=== PATIENT | male | born 1965 | race Caucasian/White ===

== ENCOUNTER 2016-08-26 13:48 | Emergency (ER) | payer BC ==
[2016-08-26 14:05] VITALS: BP 163/82
--- NOTE | 2016-08-26 14:41 | EDM.PDOC ---
ED HPI GI/ABDOMINAL - General Chief Complaint: Abdominal Pain Stated Complaint: STOMACH PAIN Time Seen by Provider: 08/26/16 14:31 Source of Information: Reports: Patient History Limitations: Reports: No limitations - History of Present Illness INITIAL COMMENTS - FREE TEXT/NARRATIVE: Patient presents for evaluation and treatment of abdominal discomfort and diarrhea. Patient reports this is been going on for the last week. He reports that he will have a normal stool in the morning. States any time after eating he develops abdominal discomfort, gas and diarrhea. He denies any bloody stools. Reports the abdominal discomfort is generalized. No specific area of discomfort. He states that the stool is watery. Reports about 4 or 5 episode of diarrhea a day. Patient denies any fevers, chills, nausea, vomiting, dysuria, hematuria, melena or hematochezia. He also reports associated symptoms of lightheadedness. Reports that the diarrhea improves after using some over-the- counter Imodium. Patient reports that he has been drinking well. He has not been eating as much due to the fear of developing. Patient denies any recent travel. He denies any recent antibiotic use. He denies any surgeries to his abdomen. - Related Data Allergies/ADRs: Allergies Allergy/AdvReac Type Severity Reaction Status Date / Time amoxicillin [Amoxicillin] Allergy Lightheaded Verified 08/26/16 14:05 ness Home Meds: Home Meds LORazepam [Ativan] 0.5 mg PO BID 12/05/13 [History] Lisinopril [Zestril] 5 mg PO BID 12/05/13 [History] Loratadine [Claritin] 10 mg PO DAILY 12/05/13 [History] Milk Thistle 500 mg PO BID 12/05/13 [History] Multivitamin [Multivitamins] 1 each PO DAILY 12/05/13 [History] Anti-Inflammatory 1 dose PO BID PRN 08/26/16 [History] Cyclobenzaprine [Flexeril] 10 mg PO BID PRN 08/26/16 [History] Omeprazole Magnesium [Prilosec Otc] 20 mg PO DAILY 08/26/16 [History] Red Yeast Rice 600 mg PO DAILY 08/26/16 [History] Past Medical History HEENT History: Reports: Sinusitis Cardiovascular History: Reports: High cholesterol, Hypertension Gastrointestinal History: Reports: Helicobacter pylori, Other (see below) Other Gastrointestinal History: reflux/GERD Musculoskeletal History: Reports: Other (see below) Other Musculoskeletal History: intermittent back pain Psychiatric History: Reports: Anxiety Endocrine/Metabolic History: Reports: Obesity/BMI 30+ Dermatologic History: Reports: Psoriasis - Infectious Disease History Infectious Disease History: Reports: Chicken pox - Past Surgical History GI Surgical History: Reports: None Social & Family History - Family History Family Medical History: Noncontributory - Tobacco Use Smoking Status *Q: Light Tobacco Smoker Years of Tobacco use: 6 Packs/Tins Daily: 0.1 - Caffeine Use Caffeine Use: Reports: None Other Caffeine Use: herbal tea - Alcohol Use Days Per Week of Alcohol Use: 2 Number of Drinks Per Day: 5 Total Drinks Per Week: 10 - Recreational Drug Use Recreational Drug Use: No ED ROS GENERAL - Review of Systems Review Of Systems: See Below Constitutional: Denies: fever, chills Cardiovascular: Reports: Lightheadedness GI/Abdominal: Reports: Abdominal pain (generalized), Diarrhea. Denies: Constipation, Hematochezia, Melena, Nausea, Vomiting : Reports: no symptoms. Denies: dysuria ED EXAM, GI/ABD - Physical Exam Exam: See Below Exam Limited By: No limitations General Appearance: alert, WD/WN, no apparent distress Respiratory/Chest: no respiratory distress, lungs clear, normal breath sounds Cardiovascular: normal peripheral pulses, regular rate, rhythm, no murmur GI/Abdominal: soft, hyperactive bowel sounds, tenderness (generalized). No: guarding, rebound, McBurney's sign, psoas sign, obturator sign, Isabel's sign Neurological: alert, oriented, normal cognition Psychiatric: normal affect, normal mood Skin Exam: Warm, Dry, Normal color Course - Vital Signs Last Recorded V/S: Last Vital Signs Temp 37.0 C 08/26/16 14:00 Pulse 96 08/26/16 14:00 Resp 18 08/26/16 14:00 BP 163/82 H 08/26/16 14:00 Pulse Ox 95 08/26/16 14:00 - Orders/Labs/Meds Labs: Laboratory Tests 08/26/16 08/26/16 08/26/16 Range/Units 14:45 14:52 14:52 WBC 13.28 H (4.23-9.07) K/mm3 RBC 5.36 (4.63-6.08) M/mm3 Hgb 17.1 (13.7-17.5) gm/L Hct 47.4 (40.1-51.0) % MCV 88.4 (79.0-92.2) fl MCH 31.9 (25.7-32.2) pg MCHC 36.1 H (32.2-35.5) g/dl RDW Std Deviation 42.9 (35.1-43.9) fL Plt Count 257 (163-337) K/mm3 MPV 9.0 L (9.4-12.3) fl Neut % (Auto) 49.3 (34.0-67.9) % Lymph % (Auto) 27.6 (21.8-53.1) % [place] % (Auto) 10.5 (5.3-12.2) % Eos % (Auto) 11.7 H (0.8-7.0) Baso % (Auto) 0.7 (0.1-1.2) % Neut # 6.55 H (1.78-5.38) K/mm3 Lymph # 3.67 H (1.32-3.57) K/mm3 Pender # 1.39 H (0.30-0.82) K/mm3 Eos # 1.55 H (0.04-0.54) K/mm3 Baso # 0.09 H (0.01-0.08) K/mm3 Sodium 140 (136-145) mEq/L Potassium 4.1 (3.5-5.1) mEq/L Chloride 105 (98-107) mEq/L Carbon Dioxide 24 (21-32) mEq/L Anion Gap 15.1 H (5-15) BUN 15 (7-18) mg/dL Creatinine 1.2 (0.7-1.3) mg/dL Est Cr Clr Drug Dosing 77.73 mL/min Estimated GFR (MDRD) > 60 (>60) mL/min BUN/Creatinine Ratio 12.5 L (14-18) Glucose 88 (74-106) mg/dL Calcium 9.5 (8.5-10.1) mg/dL Total Bilirubin 0.5 (0.2-1.0) mg/dL AST 29 (15-37) U/L ALT 86 H (16-63) U/L Alkaline Phosphatase 84 (46-116) U/L C-Reactive Protein 0.3 (<1.0) mg/dL Total Protein 7.9 (6.4-8.2) g/dl Albumin 4.3 (3.4-5.0) g/dl Globulin 3.6 gm/dL Albumin/Globulin Ratio 1.2 (1-2) Urine Color Yellow (Yellow) Urine Appearance Clear (Clear) Urine pH 6.0 (5.0-8.0) Ur Specific [place] 1.015 (1.005-1.030) Urine Protein Negative (Negative) Urine Glucose (UA) Negative (Negative) Urine Ketones Negative (Negative) Urine Occult Blood Negative (Negative) Urine Nitrite Negative (Negative) Urine Bilirubin Negative (Negative) Urine Urobilinogen 0.2 (0.2-1.0) Ur Leukocyte Esterase Negative (Negative) Urine RBC Not seen (0-5) /hpf Urine WBC Not seen (0-5) /hpf Ur Epithelial Cells Not seen (0-5) /hpf Urine Bacteria Not seen (FEW) /hpf Urine Mucus Not seen (FEW) /hpf - Re-Assessments/Exams Free Text/Narrative Re-Assessment/Exam: 08/26/16 15:55 Labs returned. White blood cell count is slightly elevated at 13.28, hemoglobin is 17.1 and platelets are 257. CRP is within normal limits at 0.3. Sodium is 140, potassium 4.1, chloride is 105 anion gap is 15.1. AST is 29, ALT is 86 and alkaline phosphatase is 84. Total bilirubin is 0.5. UA is negative for blood, leukocytes, nitrates, ketones and glucose. Reviewed labs with the patient and his . I feel this is likely a gastroenteritis causing the symptoms. Will discharge home at this time. Discharge instructions as documented. Departure - Departure Time of Disposition: 15:56 Disposition: Home, Self-Care 01 Condition: fair Clinical Impression: Gastroenteritis Instructions: Viral Gastroenteritis, Adult, [id number] Referrals: Alisa Machuca MD [Primary Care Provider] - Forms: ED Department Discharge Additional Instructions: Rest and drink plenty of fluids. Drink water or Gatorade. [place] foods for the next week. [place] food recommendations include bread, rice, toast, applesauce, bananas, egg whites, soup broth, etc. Continue taking probiotics daily. Expect you illness to last about one more week. Should this persist beyond one week, follow-up with your primary care provider. Please return to the ER should your symptoms change or worsen. In particular we would like to see you for fevers, bloody stools, vomiting or any other concerning symptoms.
== END 2016-08-26 16:18 | disposition home or self-care (01) ==
LOC: JD.ED 13:48
DX: K52.9 Noninfective gastroenteritis and colitis, unspecified (principal); E78.00 Pure hypercholesterolemia, unspecified; I10 Essential (primary) hypertension; K21.9 Gastro-esophageal reflux disease without esophagitis; F41.9 Anxiety disorder, unspecified; E66.9 Obesity, unspecified; F17.210 Nicotine dependence, cigarettes, uncomplicated; Z79.899 Other long term (current) drug therapy; Z88.1 Allergy status to other antibiotic agents
CPT/HCPCS: 36415; 80053; 81001; 85025; 86140; 99282; 99284